=== PATIENT | male | born 1950 | race Two or more races ===

== ENCOUNTER 2020-01-02 07:59 | Outpatient (CLI) | payer OTHER | END 2020-01-02 08:43 | disposition home or self-care (01) | LOC: SONOGRAMA 07:59 | PROVIDERS: ATTEND Pathology Anatomic Pathology & Clinical Pathology | DX: R22.2 Localized swelling, mass and lump, trunk (principal) ==

== ENCOUNTER 2020-06-26 07:21 | Outpatient (CLI) | payer OTHER | END 2020-06-26 07:35 | disposition home or self-care (01) | LOC: TOM 07:21 | PROVIDERS: ATTEND Internal Medicine | DX: K57.30 Diverticulosis of large intestine without perforation or abscess without bleeding (principal); Z12.11 Encounter for screening for malignant neoplasm of colon; Z86.010 Personal history of colon polyps; Z80.0 Family history of malignant neoplasm of digestive organs; K56.50 Intestinal adhesions [bands], unspecified as to partial versus complete obstruction ==